=== PATIENT | male | born 1965 | race Caucasian/White ===

== ENCOUNTER 2016-11-01 12:23 | Emergency (ER) | payer OTHER ==
[2016-11-01 12:29] VITALS: O2SAT 96
--- NOTE | 2016-11-01 12:39 | UCPHY ---
H & P Patient Type: Established Chief Complaint Nursing Narrative: lt shoulder pain from fall on Sunday night Time Seen by Provider: 11/01/16 12:30 HPI/ROS: Chief complaint: Left shoulder pain HPI: 50-year-old male sustained a fall 2 days ago long he slipped off of his father structure. Patient flank denies right-hand side but his left arm rotated backwards causing pain. Patient has had persistent pain primarily in the inferior posterior portion of his left shoulder. He has not have a decreased range of motion. No numbness or tingling. No weakness. Did not have any loss of consciousness. Is concerned because he is having persistent pain works in a warehouse. He has been taking ibuprofen with relief of his pain. No prior injuries. ROS: 10 point Review of Systems is negative except as noted in the HPI. Past medical history: None Medications: None Allergies: None Social history: Nonsmoker Physical exam: General: Awake, alert, no acute distress Left shoulder. He has no clavicular tenderness. No tenderness over the insertions of his tendons. He has no proximal humerus tenderness. He is able to raise his arm above his head without any difficulty. No pain with have abduction or abduction. No pain with external or internal rotation. He has full passive and active range of motion. No elbow tenderness. He is neurovascularly intact. Neurologically intact in all dermatomes. Skin: No rash - Personal History Current Tetanus Diphtheria and Acellular Pertussis (TDAP): Yes - Medical/Surgical History Hx Asthma: No Hx Chronic Respiratory Disease: No Hx Diabetes: No Hx Cardiac Disease: No Hx Renal Disease: No Hx Cirrhosis: No Hx Alcoholism: No Hx HIV/AIDS: No Hx Splenectomy or Spleen Trauma: No Other PMH: ortho surgs. appy - Family History Significant Family History: No pertinent family hx - Social History Smoking Status: Current every day smoker Constitutional: Initial Vital Signs Temperature (C) 36.6 C 11/01/16 12:27 Heart Rate 78 11/01/16 12:27 Respiratory Rate 18 11/01/16 12:27 Blood Pressure 136/66 H 11/01/16 12:27 O2 Sat (%) 96 11/01/16 12:27 O2 Delivery Mode Room Air Allergies/Adverse Reactions: No Known Allergies Allergy (Verified 10/31/14 08:21) Home Medications: Medication Instructions Recorded NO HOME MEDS 07/03/13 Departure - Departure Disposition: Home, Routine, Self-Care Clinical Impression: Shoulder strain Condition: Good Instructions: Rotator Cuff Injury (ED) Additional Instructions: Follow up with primary care in about a week if symptoms are not improving. Referrals: NONE *PRIMARY CARE P,. [Primary Care Provider] - As per Instructions Brandi Kirby MD [Medical Doctor] - As per Instructions Stand Alone Forms: Work Limited Duty - PQRS PQRS Measurement: NA
[2016-11-01 12:48] VITALS: BP 132/71; PULSE 76; RESP 16; TEMP 97.9
== END 2016-11-01 12:46 | disposition home or self-care (01) ==
LOC: CED 12:23
DX: S43.402A Unspecified sprain of left shoulder joint, initial encounter (principal); Z72.0 Tobacco use; W17.89XA Other fall from one level to another, initial encounter
CPT/HCPCS: 99213-PO; G0463-PO